=== PATIENT | male | born 1970 | race Two or more races ===

== ENCOUNTER 2018-09-17 11:48 | Emergency (ER) | payer OTHER ==
[~2018-09-17] VITALS: Ht 180.3 cm; Wt 141.0 kg
[~2018-09-17 11:48] MED LIST: BENA40TA9 PO; CYCL5TAB PO; GLIM2TAB2 PO; GLIP10TA10 PO; IBUP-2030 PO; METF-414 PO; PROP10TA10 PO
[2018-09-17] MEDS ORDERED: ACETAMINOPHEN 325MG TABLET PO STA (12:24)
[2018-09-17] MEDS ORDERED: SODIUM CHLORIDE 0.9% 1000ML BAG (SEPSIS BOLUS) IV ONE (12:30)
[2018-09-17 12:45] LABS: BASOPHILS % 0.3 % (0.0-2.0); HEMATOCRIT. 45.4 % (42.0-52.0); HEMOGLOBIN. 15.6 g/dL (14.0-18.0); LYMPHOCYTES % 14.2 % (20.0-50.0); MEAN CORPUSCULAR HEMOGLOBIN 28.8 pg (28.0-32.0); MEAN CORPUSCULAR VOLUME 83.7 fL (80.0-94.0); MEAN PLATELET VOLUME 8.7 fl (7.4-10.4); NEUTROPHILS % 73.5 % (40.0-76.0); PLATELET 221 x1000/uL (130-400); RED BLOOD CELL COUNT 5.42 mill/uL (4.7-6.1); RED CELL DISTRIBUTION WIDTH 13.9 % (11.6-14.6)
[2018-09-17 12:46] LABS: CHLORIDE 97 mEq/L (98-107)
[2018-09-17 12:47] LABS: INR 1.1; PROTHROMBIN TIME 10.7 sec (9.1-11.1)
[2018-09-17] MEDS ORDERED: VANCOMYCIN 1 G PREMIX 200 ML IV ONE (13:15)
[2018-09-17] MEDS ORDERED: PIPERACILLIN/TAZ 3.375G PREMIX 50 ML IV ONE (13:15)
[2018-09-17] MEDS ORDERED: OSELTAMIVIR 75MG CAPSULE PO ONE (13:45)
[2018-09-17 14:30] LABS: CLARITY URINE CLEAR (CLEAR); COLOR URINE YELLOW (YELLOW); KETONES URINE 1+ (NEGATIVE); LEUKOCYTE ESTERASE URINE NEGATIVE (NEGATIVE); NITRITE URINE NEGATIVE (NEGATIVE); OCCULT BLOOD URINE 1+ (NEGATIVE); PROTEIN URINE NEGATIVE (NEGATIVE); SPECIFIC GRAVITY URINE 1.013 (1.005-1.030)
[2018-09-17] MEDS ORDERED: HYDROCODONE/ACETAMINOPHEN 5/325MG TABLET PO ONE (14:30)
[2018-09-17] MEDS ORDERED: KETOROLAC 30MG/ML VIAL IV ONE (15:15)
[2018-09-17] MEDS ORDERED: MORPHINE SULFATE 10 MG/ML CPJ IV ONE (16:45)
[2018-09-17 17:21] VITALS: BP 142/89
== END 2018-09-17 17:33 | disposition home or self-care (01) ==
LOC: ER 11:48 → CANBEDREQ 18:24
DX: J09.X2 Influenza due to identified novel influenza A virus with other respiratory manifestations (principal); E11.9 Type 2 diabetes mellitus without complications; E78.00 Pure hypercholesterolemia, unspecified; I10 Essential (primary) hypertension; M54.5 Low back pain; R31.9 Hematuria, unspecified; R07.9 Chest pain, unspecified; R10.30 Lower abdominal pain, unspecified; Z79.899 Other long term (current) drug therapy
CPT/HCPCS: 36415; 71045; 74176; 80053; 81003; 83605; 83690; 84145; 84484; 85025; 85610; 87040; 87077; 87086; 87186; 87804; 93005; 96374; 96375; 99284; J1885; J2270; J7030

== ENCOUNTER 2020-07-28 14:08 | Emergency (ER) | payer OTHER ==
[~2020-07-28] VITALS: Ht 180.3 cm; Wt 139.7 kg
[~2020-07-28 14:08] MED LIST changes: -GLIM2TAB2 PO; +GLIM2TAB30 PO
[2020-07-28] MEDS ORDERED: NITROGLYCERIN 0.4MG TABLET SL SL PRN (14:45)
[2020-07-28] MEDS ORDERED: CLONIDINE 0.2MG TABLET PO ONE (15:00)
[2020-07-28 15:09] LABS: BASOPHILS % 0.3 % (0.0-2.0); EOSINOPHILS % 0.7 % (0.0-5.0); HEMATOCRIT. 43.9 % (42.0-52.0); HEMOGLOBIN. 14.8 g/dL (14.0-18.0); LYMPHOCYTES % 16.4 % (20.0-50.0); MEAN CORPUSCULAR HEMOGLOBIN 28.4 pg (28.0-32.0); MEAN CORPUSCULAR VOLUME 84.1 fL (80.0-94.0); MEAN PLATELET VOLUME 9.8 fl (7.4-10.4); MONOCYTES % 5.9 % (2.0-8.0); NEUTROPHILS % 76.7 % (40.0-76.0); PLATELET 243 x1000/uL (130-400); RED BLOOD CELL COUNT 5.22 mill/uL (4.7-6.1); RED CELL DISTRIBUTION WIDTH 13.8 % (11.6-14.6)
[2020-07-28 15:16] LABS: CHLORIDE 103 mEq/L (98-107)
[2020-07-28 15:18] LABS: D-DIMER 0.23 mg/L FEU (<0.50); PARTIAL THROMBOPLASTIN TIME 27.2 sec (23.4-31.0); PROTHROMBIN TIME 10.9 sec (9.6-11.0)
[2020-07-28] MEDS ORDERED: ASPIRIN 325MG EC TABLET PO ONE (17:00)
[2020-07-28 21:02] VITALS: BP 140/85
== END 2020-07-28 21:22 | disposition left against medical advice (07) ==
LOC: ER 14:08 → CANBEDREQ 22:03
DX: R20.0 Anesthesia of skin (principal); R07.89 Other chest pain; I10 Essential (primary) hypertension; E11.65 Type 2 diabetes mellitus with hyperglycemia; E78.00 Pure hypercholesterolemia, unspecified; Z79.84 Long term (current) use of oral hypoglycemic drugs
CPT/HCPCS: 36415; 71045; 80053; 82962; 83880; 84484; 85025; 85379; 93005; 99285

== ENCOUNTER 2020-08-03 17:39 | Emergency (ER) | payer OTHER ==
[~2020-08-03] VITALS: Ht 180.3 cm; Wt 133.0 kg
[2020-08-03] MEDS ORDERED: LABETALOL 5MG/ML SYR 20 MG/4 ML SYRINGE IV ONE (18:45)
[2020-08-03] MEDS ORDERED: ASPIRIN 325MG TABLET PO ONE (18:45)
[2020-08-03 18:49] LABS: BASOPHILS % 0.3 % (0.0-2.0); EOSINOPHILS % 0.8 % (0.0-5.0); HEMATOCRIT. 47.9 % (42.0-52.0); HEMOGLOBIN. 16.3 g/dL (14.0-18.0); MEAN CORPUSCULAR HEMOGLOBIN 28.7 pg (28.0-32.0); MEAN CORPUSCULAR VOLUME 84.4 fL (80.0-94.0); MEAN PLATELET VOLUME 9.4 fl (7.4-10.4); MONOCYTES % 7.1 % (2.0-8.0); NEUTROPHILS % 61.8 % (40.0-76.0); PLATELET 327 x1000/uL (130-400); RED BLOOD CELL COUNT 5.68 mill/uL (4.7-6.1); RED CELL DISTRIBUTION WIDTH 13.4 % (11.6-14.6)
[2020-08-03 18:52] LABS: CHLORIDE 99 mEq/L (98-107)
[2020-08-03] MEDS ORDERED: MORPHINE SULFATE 4 MG/ML CPJ (NOT FOR IM USE) IV STA (20:34)
[2020-08-03] MEDS ORDERED: NITROGLYCERIN 0.4MG TABLET SL SL ONE (20:45)
[2020-08-04 02:00] VITALS: BP 120/88
== END 2020-08-04 03:20 | disposition short-term general hospital (02) ==
LOC: ER 17:39
DX: R07.89 Other chest pain (principal); I10 Essential (primary) hypertension; E78.5 Hyperlipidemia, unspecified
CPT/HCPCS: 36415; 71045; 80053; 83880; 84484; 85025; 93005; 96374; 99285; J2270

== ENCOUNTER 2021-02-23 12:57 | Emergency (ER) | payer OTHER ==
[~2021-02-23] VITALS: Ht 180.3 cm; Wt 132.0 kg
[2021-02-23] MEDS ORDERED: ASPI-1497 PO (13:05)
[2021-02-23] MEDS ORDERED: ATOR20TA65 PO (13:05)
[2021-02-23] MEDS ORDERED: HYDR25TA PO (13:05)
[2021-02-23 14:11] LABS: BASOPHILS % 0.4 % (0.0-2.0); HEMATOCRIT. 41.2 % (42.0-52.0); HEMOGLOBIN. 14.6 g/dL (14.0-18.0); LYMPHOCYTES % 18.5 % (20.0-50.0); MEAN CORPUSCULAR HEMOGLOBIN 29.7 pg (28.0-32.0); MEAN CORPUSCULAR VOLUME 83.5 fL (80.0-94.0); MEAN PLATELET VOLUME 8.9 fl (7.4-10.4); MONOCYTES % 4.9 % (2.0-8.0); NEUTROPHILS % 75.2 % (40.0-76.0); PLATELET 287 x1000/uL (130-400); RED BLOOD CELL COUNT 4.93 mill/uL (4.7-6.1); RED CELL DISTRIBUTION WIDTH 13.8 % (11.6-14.6)
[2021-02-23 14:17] LABS: CHLORIDE 103 mEq/L (98-107)
[2021-02-23] MEDS ORDERED: ASPIRIN 325MG EC TABLET PO ONE (14:45)
[2021-02-23] MEDS ORDERED: NITROGLYCERIN 0.4MG TABLET SL SL ONE (14:45)
[2021-02-23] MEDS ORDERED: ACETAMINOPHEN 325MG TABLET PO ONE (17:30)
[2021-02-23 19:04] VITALS: BP 165/103
== END 2021-02-23 19:10 | disposition left against medical advice (07) ==
LOC: ER 12:57
DX: R07.89 Other chest pain (principal); I10 Essential (primary) hypertension; E11.9 Type 2 diabetes mellitus without complications; Z79.84 Long term (current) use of oral hypoglycemic drugs; Z79.82 Long term (current) use of aspirin
CPT/HCPCS: 36415; 71045; 80053; 82962; 84484; 85025; 93005; 99285